=== PATIENT | male | born 1960 | race Caucasian/White ===

== ENCOUNTER 2021-01-05 12:30 | Emergency (ER) | payer OTHER ==
[2021-01-05 12:53] VITALS: TEMP 98; BMI 30.7
[2021-01-05] MEDS ORDERED: amLODIPine BESYLATE 5 MG TABLET (FP) PO ONE ×2 (13:35→15:21)
[2021-01-05 14:11] LABS: BASO % 0.6 % (0-2.0); EOS % 0.1 % (0-4.5); HEMATOCRIT 43.3 % (35.4-49); HEMOGLOBIN 14.8 GM/dL (11.7-16.9); LYMPH % 27.3 % (8-40); MCH 31.1 pg (25.7-33.7); MCHC 34.2 g/dl (32.0-35.9); MEAN CELL VOLUME 90.7 fl (80-96); MEAN PLT VOLUME 7.5 fl (7.5-11.1); PLATELET COUNT 255 K/MM3 (134-434); RBC 4.77 M/mm3 (4.00-5.60); RDW 13.9 % (11.9-15.9); WHITE BLOOD COUNT 5.8 K/mm3 (4.0-10.0)
[2021-01-05] MEDS ORDERED: amLODIPine BESYLATE 5 MG TABLET (FP) ONE ×2 (14:13→15:26)
[2021-01-05 14:29] LABS: POTASSIUM 3.7 mmol/L (3.5-5.1)
[2021-01-05 14:31] LABS: BLOOD UREA NITROGEN 9.4 mg/dL (7-18); CALCIUM 9.6 mg/dL (8.5-10.1)
[2021-01-05 14:35] LABS: CREATININE 1.1 mg/dL (0.55-1.3)
[2021-01-05 15:29] LABS: EPI CELLS 33 /uL (0-25.1); HYALINE CASTS 3 /uL (0-3.1); URINE APPEARANCE CLEAR; URINE BACTERIA 690 /uL (0-1359); URINE BILIRUBIN NEGATIVE (NEGATIVE); URINE COLOR YELLOW; URINE GLUCOSE (UA) NEGATIVE (NEGATIVE); URINE KETONE NEGATIVE (NEGATIVE); URINE LEUK ESTERASE NEGATIVE (NEGATIVE); URINE NITRITE NEGATIVE (NEGATIVE); URINE PROTEIN 1+ (NEGATIVE); URINE RBC 7 /uL (0-23.9); URINE UROBILINOGEN 0.2 mg/dL (0.2-1.0)
[2021-01-05 16:09] LABS: URINE WBC 57.4 /uL (0-25.8)
[2021-01-05 16:17] VITALS: BP 214/131; PULSE 90
== END 2021-01-05 17:38 | disposition home or self-care (01) ==
LOC: JER 12:30
DX: I10 Essential (primary) hypertension (principal)
CPT/HCPCS: 36415; 71045-TC-FY; 76512; 80048; 81003; 82550; 84484; 85025; 93005; 93010; 99285-25; C9803; U0003